=== PATIENT | male | born 1965 | race Asian ===

== ENCOUNTER → 2023-08-25 | Outpatient (CLI) | payer OTHER ==
[~2023-08-25] MED LIST: INSU100C3 SQ
[2023-08-26 08:06] LABS: RUBELLA AB IGG-REFLAB 9.73 index (Immune >0.99); RUBEOLA (MEASLES) IGG >300.0 AU/mL (Immune >16.4); VARICELLA ZOSTER IGG AB TITER >4000 index (Immune >165)
== END | disposition home or self-care (01) ==
LOC: MSR 11:31
PROVIDERS: ATTEND Internal Medicine
DX: Z02.1 Encounter for pre-employment examination (principal)
CPT/HCPCS: 71045; 86706; 86735; 86762; 86765; 86787; 36415-L1; 36415-TC